=== PATIENT | female | born 1965 | race Two or more races ===

== ENCOUNTER → 2024-12-05 | Emergency (ER) | payer OTHER ==
[~2024-12-05] VITALS: Ht 154.9 cm; Wt 77.1 kg
[~2024-12-05] MED LIST: AMLODIPINE-OLM1 EAC2; CEFTRIAXONE SODIUM 1,000 MG VIAL IM STA; ROSUVASTATIN CA20 MG; VALSARTAN-HCTZ1 EAC3 PO
== END | disposition home or self-care (01) ==
LOC: ER 06:48 → EDBD 07:38 → ER 07:38
DX: J06.9 Acute upper respiratory infection, unspecified (principal)